=== PATIENT | female | born 2000 | race Caucasian/White ===

== ENCOUNTER 2024-11-22 19:59 | Emergency (ER) | payer SELFPAY ==
[~2024-11-22] VITALS: Ht 157.5 cm; Wt 57.6 kg
[2024-11-22 20:10] VITALS: PULSE 77; RESP 18; TEMP 98.9
[2024-11-22 20:24] VITALS: BP 122/77; PULSE 77; RESP 18; TEMP 98.9; O2SAT 97
== END 2024-11-22 20:24 | disposition home or self-care (01) ==
LOC: FSED 20:18
DX: R30.0 Dysuria (principal); F17.210 Nicotine dependence, cigarettes, uncomplicated
CPT/HCPCS: 81003; 81025; 99282